=== PATIENT | female | born 1960 | race Caucasian/White ===

== ENCOUNTER 2016-12-29 13:59 | Emergency (ER) | payer OTHER ==
[~2016-12-29] VITALS: Ht 167.6 cm; Wt 83.8 kg
[~2016-12-29 13:59] MED LIST: ABILIFY2 MG PO; BIOTIN PO; BIOTIN2500 MCG PO; BUPROBAN150 MG PO; DESYREL100 MG PO; FEVER FEW PO; FISH OIL300 MG PO; LASIX20 MG PO; LUTEIN20 M1 PO; LUTEIN20 MG PO; MEGA MULTI FOR1 EACH PO; METAXALONE800 MG PO; ONE DAILY MULT1 EACH PO; OXYCODONE HCL20 M1 PO; OXYCONTIN20 MG PO; PERCOCET 5/31 TABLET PO; SKELAXIN400 M1 PO; SYNTHROID100 MCG PO; TOPAMAX100 MG PO; TRAZODONE HCL100 MG PO; WELLBUTRIN XL150 MG PO; XANAX XR1 MG PO; XANAX1 MG PO
[2016-12-29] MEDS ORDERED: SYNTHROID75 MCG PO (14:12)
[2016-12-29] MEDS ORDERED: VRAYLAR1.5 MG PO (14:12)
[2016-12-29] MEDS ORDERED: BUPROPION XL300 MG PO (14:13)
[2016-12-29] MEDS ORDERED: BUPROPION XL150 MG PO (14:13)
[2016-12-29] MEDS ORDERED: MOVANTIK25 MG PO (14:14)
[2016-12-29] MEDS ORDERED: ALPRAZOLAM ER2 MG PO (14:14)
[2016-12-29] MEDS ORDERED: ALPRAZOLAM2 MG PO (14:14)
[2016-12-29] MEDS ORDERED: ENDOCET 5-3251 EACH PO (14:15)
[2016-12-29] MEDS ORDERED: HYOSCYAMINE0.125 M2 PO (14:16)
[2016-12-29] MEDS ORDERED: PANTOPRAZOLE SO20 MG PO (14:16)
[2016-12-29] MEDS ORDERED: ZANAFLEX2 M1 PO (14:16)
[2016-12-29] MEDS ORDERED: PERCOCET 5/31 TABLET PO (16:42)
[2016-12-29 16:57] VITALS: BP 130/78
== END 2016-12-29 16:58 | disposition home or self-care (01) ==
LOC: EME 13:59
DX: S52.502A Unspecified fracture of the lower end of left radius, initial encounter for closed fracture (principal); S52.602A Unspecified fracture of lower end of left ulna, initial encounter for closed fracture; W10.8XXA Fall (on) (from) other stairs and steps, initial encounter; Y92.008 Other place in unspecified non-institutional (private) residence as the place of occurrence of the external cause
CPT/HCPCS: 73100; 73110; 99281; 99284

== ENCOUNTER 2017-05-20 15:08 | Emergency (ER) | payer OTHER ==
[~2017-05-20] VITALS: Ht 167.6 cm; Wt 79.6 kg
[~2017-05-20 15:08] MED LIST changes: +ALPRAZOLAM ER2 MG PO; +ALPRAZOLAM2 MG PO; +BUPROPION XL150 MG PO; +BUPROPION XL300 MG PO; +ENDOCET 5-3251 EACH PO; +HYOSCYAMINE0.125 M2 PO; +MOVANTIK25 MG PO; +PANTOPRAZOLE SO20 MG PO; +SYNTHROID75 MCG PO; +VRAYLAR1.5 MG PO; +ZANAFLEX2 M1 PO
[2017-05-20] MEDS ORDERED: DILAUDID2 MG PO (16:55)
[2017-05-20 17:15] VITALS: BP 138/99
== END 2017-05-20 18:23 | disposition home or self-care (01) ==
LOC: EME 15:08 → EXP 15:08
PROC: 2W3CX1Z Immobilization of Right Lower Arm using Splint (ICD-10-PCS; principal; 2017-05-20)
DX: S52.501A Unspecified fracture of the lower end of right radius, initial encounter for closed fracture (principal); S52.611A Displaced fracture of right ulna styloid process, initial encounter for closed fracture; W01.10XA Fall on same level from slipping, tripping and stumbling with subsequent striking against unspecified object, initial encounter; Y92.838 Other recreation area as the place of occurrence of the external cause
CPT/HCPCS: 73090; 73110; 99281; 99283